=== PATIENT | female | born 1970 | race Caucasian/White ===

== ENCOUNTER → 2016-08-21 | Day surgery (SDC) | payer OTHER ==
--- NOTE | 2016-08-23 07:50 | PATH ---
Cytology Non-Gynecological Report Patient Name: TOBY MAYEN [facility]. Rec. #: [id number] /Age/Gender: 1970 (Age: 46) / F Account: [id number] Location: RADIOLOGY Taken: 08/21/2016 Received: 08/21/2016 Reported: 08/23/2016 Physicians: Luna Walton M.D. Specimen(s) Received RIGHT THYROID FNA Clinical History Right thyroid nodule, 4.20 x 2.40 x 3.20 cm Final Diagnosis THYROID GLAND, RIGHT LOBE, US GUIDED FINE NEEDLE ASPIRATION BIOPSY: SATISFACTORY FOR EVALUATION. NO MALIGNANT CELLS IDENTIFIED. CONSISTENT WITH ADENOMATOID NODULE (BENIGN FOLLICULAR NODULE, BETHESDA CATEGORY II, BENIGN), SEE COMMENT. Comment: The smears and cell block show clusters of bland appearing follicular epithelial cells arranged in mixed macro- and microfollicles and flat sheets. Some cells ramos Hurthle cell (oncocytic change). Colloid is present. Electronically Signed Manohar Peterson M.D. Gross Description Received are four air dried smears, four smears in 95% alcohol, and 20 cc of bloody fluid in formalin. Four diff-quik stained slides, four Pap stained slides and one cell block are made.
== END | disposition home or self-care (01) ==
LOC: JRADIR 09:54
PROVIDERS: ATTEND Family Medicine
PROC: 0GBH3ZX Excision of Right Thyroid Gland Lobe, Percutaneous Approach, Diagnostic (ICD-10-PCS; principal; 2016-08-21)
PROC: BG44ZZZ Ultrasonography of Thyroid Gland (ICD-10-PCS; 2016-08-21)
DX: E04.1 Nontoxic single thyroid nodule (principal)
CPT/HCPCS: 76942; 88173; 88305-TC

== ENCOUNTER 2017-06-14 09:55 | Day surgery (SDC) | payer OTHER ==
[2017-06-13 16:58] VITALS: BMI 32.2
--- NOTE | 2017-06-14 09:17 | HP ---
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 She also has a small nodule on the left lobe of her thyroid. Plan: Right thyroid lobectomy with frozen section , possible total thyroidectomy.)
[2017-06-14] MEDS ORDERED: MIDAZOLAM HCL 2 MG/2 ML SINGLE DOSE VIAL ONE (12:10)
[2017-06-14] MEDS ORDERED: LIDOCAINE HCL/PF 2% SDV 5ML VIAL ONE (12:11)
[2017-06-14] MEDS ORDERED: PROPOFOL 20 ML ONE ×3 (12:11→14:21)
[2017-06-14] MEDS ORDERED: SUCCINYLCHOLINE CHLORIDE 200 MG/10 ML VIAL ONE (12:12)
[2017-06-14] MEDS ORDERED: DEXAMETHASONE SOD PHOSPHATE 4 MG/1 ML VIAL ONE (12:30)
[2017-06-14] MEDS ORDERED: KETOROLAC TROMETHAMINE 30 MG/1 ML VIAL ONE (12:30)
[2017-06-14] MEDS ORDERED: ceFAZolin SODIUM 1 GM VIAL IVPB ONE (12:45)
[2017-06-14] MEDS ORDERED: ceFAZolin SODIUM 1 GM VIAL ONE (12:52)
[2017-06-14] MEDS ORDERED: SODIUM CHLORIDE 0.9% P/F 10 ML VIAL IJ ONE (12:52)
[2017-06-14] MEDS ORDERED: ONDANSETRON 4 MG/2 ML VIAL IVPUSH PRN (13:01)
[2017-06-14] MEDS ORDERED: BUPIVACAINE HCL/PF 0.5% (5MG/ML) 10 ML VIAL ONE (13:10)
[2017-06-14] MEDS ORDERED: LACTATED RINGERS SOLUTION 1,000 ML IV SCH (13:15)
[2017-06-14] MEDS ORDERED: SEVOFLURANE 250 ML BTL ONE (14:29)
--- NOTE | 2017-06-14 16:42 | OP ---
Operative Note - Note: Operative Date: 06/14/17 Pre-Operative Diagnosis: Thyroid nodule, suspicious for carcinoma. Operation: Total thyroidectomy, central compartment neck dissection and right lateral neck dissection, use of Nervana nerve monitor. 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 Total thyroidectomy done with nerve monitoring , central compartment neck dissection and right lateral neck dissection done. Post-Operative Diagnosis: Same as Pre-op (Carcinoma of thyroid gland.) Surgeon: Jorge Salazar Pst Supervisor: Marika Lomeli Anesthesia: General Specimens Removed: 1)Right lobe of thyroi gland ,. 2) left lobe of thyroid,. 3 ) Central compartment neck dissection Estimated Blood Loss (mls): 25 Drains & Tubes with Location: DEEJAY drain in thyroid bed. Operative Report Dictated: Yes
[2017-06-14] MEDS ORDERED: oxyCODONE HCL 5 MG TABLET PO PRN (17:03)
[2017-06-14] MEDS ORDERED: ACETAMINOPHEN 325 MG TABLET (FP) PO PRN (17:04)
[2017-06-14] MEDS: oxyCODONE HCL 5 MG TABLET PO PRN (21:23)
[2017-06-15] MEDS: oxyCODONE HCL 5 MG TABLET PO PRN ×2 (02:27→10:58)
[2017-06-15 05:53] VITALS: BP 114/71; PULSE 77; TEMP 98.8
--- NOTE | 2017-06-15 08:27 | PN ---
Progress Note (short form) - Note Progress Note: Anesthesia Post op Pt seen and examined S:alert and awake O: Vital Signs Temperature 98.8 F 06/15/17 05:51 Pulse Rate 77 06/15/17 05:51 Respiratory Rate 18 06/15/17 05:51 Blood Pressure 114/71 06/15/17 05:51 O2 Sat by Pulse Oximetry (%) 100 06/14/17 22:00 A/P: s/p neck disection thyroidectomy Doing well post op Continue current care Quang Jurado MD
[2017-06-15] MEDS ORDERED: CALCIUM 500MG/VIT-D 200 UNITS COMBO TABLET (FP) PO SCH (10:00)
--- NOTE | 2017-06-15 13:28 | OP ---
DATE OF OPERATION: 06/14/2017 PREOPERATIVE DIAGNOSIS: Nodule in the left lobe of the thyroid suspicious for carcinoma on fine needle aspiration biopsy. POSTOPERATIVE DIAGNOSIS: Papillary carcinoma of the thyroid. PROCEDURES PERFORMED: 1. Total thyroidectomy, central compartment neck dissection and right lateral compartment neck dissection. 2. Use of Nerveana nerve monitoring device. SURGEON: Romana Salazar MD PSYCHIATRIC NURSE PRACTITIONER: OMAIRA Alonso ANESTHESIA: General anesthesia. INDICATIONS: This 47-year-old woman was brought in for thyroidectomy. The patient had a large nodule in the right lobe of the thyroid which on FNA was highly suspicious for papillary carcinoma of the thyroid. The procedure was explained to the patient. MONITORING: The Nerveana nerve monitoring device was used during the procedure. DESCRIPTION OF PROCEDURE: The neck was positioned in extension, painted and draped. A horizontal skin incision was made from one sternocleidomastoid muscle to another. This was deepened through the skin and subcutaneous tissue and the platysma muscle. Superior and inferior skin flaps were then raised between the platysma and the deep cervical fascia, superiorly up to the hyoid bone, inferiorly anterior to and below the clavicle on either side. The sternocleidomastoid muscle was also freed from the flap on either side. The strap muscles were then divided in the midline from the hyoid bone to the suprasternal notch. The thyroid gland was then exposed. The right lobe of the thyroid gland was visualized. There was a large nodule occupying the body of the right lobe of the thyroid gland. The left lobe of the thyroid gland was also visualized after retracting the left lobe and retracting the strap muscles laterally. There was no palpable nodule in the left lobe of the thyroid gland. It was then decided to remove the right lobe of the thyroid gland. The strap muscles on the right were retracted laterally and the thyroid gland was retracted anteriorly and medially. The superior thyroid vessels were divided as close to the gland as possible between clips and the LigaSure. The inferior thyroid vessels were also divided as close to the gland as possible between clips and the LigaSure. Care was taken to preserve the blood supply to both superior and inferior parathyroid glands and preserve the gland intact. Dissection was then carried toward Foy ligament. The right lobe of the thyroid gland was retracted medially. The recurrent laryngeal nerve was identified and preserved throughout its extent until it penetrated the cricothyroid muscle. The function was monitored using the Nerveana nerve monitoring device, with appropriate response to stimulation. The gland was then mobilized across the circumferential plane toward the left. The isthmus was divided using a Paulette clamp. A specimen of the right lobe of the thyroid gland was then sent for frozen section. Frozen section diagnosis was positive for papillary carcinoma of the thyroid. It was then decided to do a total thyroidectomy with a modified neck dissection. The left lobe of the thyroid gland was then mobilized medially. The superior thyroid vessels were divided as close to the gland as possible. The superior parathyroid gland was visualized and preserved intact. The dissection was carried medial to the parathyroid and just into the thyroid gland. The inferior thyroid vessels were also divided as close to the gland as possible between Hemoclips and the LigaSure. The gland was then mobilized medially. The left recurrent laryngeal nerve was again preserved intact all along its course. This was confirmed by appropriate response to stimulation with the Nerveana nerve monitoring device. The gland was then divided at Foy ligament and a total thyroidectomy was performed. The specimen was sent to Pathology. Lateral compartment neck dissection was then performed by exposing the internal jugular vein and the carotid artery from the angle of the mandible all the way to the clavicle. There were no enlarged lymph nodes. A central compartment neck dissection was then done, removing all fibrofatty tissue from the left recurrent laryngeal nerve to the right recurrent laryngeal nerve, preserving the nerve intact. This was carried all the way down to the anterior mediastinum. The specimen was sent to Pathology. Hemostasis was satisfactory. A number 10 DEEJAY drain was left in the wound and brought out through a stab wound on the right side of the neck. Hemostasis was satisfactory. The wound was irrigated. There was no bleeding. Both recurrent laryngeal nerves were intact. The drain was anchored to the skin with 3-0 Prolene sutures. The strap muscles were then approximated with interrupted 3-0 Vicryl sutures. The platysma was approximated with buried interrupted 0 Vicryl sutures. The subcutaneous fat was approximated with buried interrupted 0 Vicryl sutures, and the skin approximated with continuous 4-0 Monocryl sutures in a running subcuticular fashion. Estimated blood loss was 25 mL. The patient tolerated the procedure well. She was extubated and sent to the recovery room in satisfactory and stable condition. Luna [id number] cc: DIANNE PAPPAS M.D.
--- NOTE | 2017-06-15 14:16 | PN ---
Progress Note, Physician - Current Medication List Current Medications: Active Medications Acetaminophen (Tylenol -) 325 mg PO Q4H PRN PRN Reason: FEVER Last Admin: 06/15/17 10:58 Dose: 325 mg Calcium Carbonate/Cholecalciferol (Os-[place] 500+D -) 1 tab PO DAILY [facility] Last Admin: 06/15/17 09:28 Dose: 1 tab Fentanyl (Sublimaze Injection -) 50 mcg IVPUSH [id number] PRN PRN Reason: PAIN-PACU ORDER X 4 DOSES ONLY Last Admin: 06/14/17 16:55 Dose: 50 mcg Lactated Ringer's (Lactated Ringers Solution) 1,000 mls @ 75 mls/hr IV ASDIR [facility] Last Admin: 06/14/17 21:22 Dose: 75 mls/hr Ondansetron HCl (Zofran Injection) 4 mg IVPUSH Q6H PRN PRN Reason: NAUSEA AND/OR VOMITING Oxycodone HCl (Roxicodone -) 5 mg PO Q4H PRN PRN Reason: Pain Level > 4 Last Admin: 06/15/17 10:58 Dose: 5 mg Oxycodone HCl (Roxicodone -) 5 mg PO Q6H PRN PRN Reason: PAIN LEVEL 1-5 - Objective Vital Signs: Vital Signs Temperature 98.8 F 06/15/17 05:51 Pulse Rate 77 06/15/17 05:51 Respiratory Rate 18 06/15/17 05:51 Blood Pressure 114/71 06/15/17 05:51 O2 Sat by Pulse Oximetry (%) 100 06/14/17 22:00 Assessment/Plan Surgery; Patient is comfortable. Neck wound is clean. drainage is minimal. plan : discharge home with synthroid and calcinm + Vitamin D. Follow up in my office.
--- NOTE | 2017-06-19 12:15 | PATH ---
Surgical Pathology Report Patient Name: TOBY MAYEN [facility]. Rec. #: [id number] /Age/Gender: 1970 (Age: 47) / F Account: [id number] Location: AMBULATORY SURG Taken: 06/14/2017 Received: 06/14/2017 Reported: 06/19/2017 Physicians: Romana Salazar M.D. Specimen(s) Received A: RIGHT THYROID LOBE B: LEFT THYROID LOBE C: CENTRAL COMPARTMENT NECK DISSECTION TISSUE Clinical History Right thyroid nodule Intraoperative Consult Diagnosis Right thyroid, frozen section: Papillary thyroid carcinoma. Brissa Keita M.D., 06/14/17 Final Diagnosis A. THYROID, RIGHT, LOBECTOMY (FS): TWO FOCI OF PAPILLARY THYROID CARCINOMA, CLASSICAL AND FOLLICULAR VARIANTS. CARCINOMA MEASURES 2.7 AND 1.5 CM (GROSS MEASUREMENT). NO LYMPHOVASCULAR OR PERINEURAL INVASION IDENTIFIED. FOCAL EXTRA THYROIDAL EXTENSION IDENTIFIED. SURGICAL MARGINS ARE NEGATIVE. REMAINDER OF THE THYROID PARENCHYMA SHOWS NODULAR HYPERPLASIA AND AREAS OF CHRONIC LYMPHOCYTIC THYROIDITIS. ONE PARATHYROID GLAND PRESENT. SEE INVASIVE SUMMARY BELOW. B. THYROID, LEFT, LOBECTOMY: PAPILLARY MICROCARCINOMA. CARCINOMA MEASURES 3 MM IN GREATEST MICROSCOPIC DIMENSION. NO LYMPHOVASCULAR OR PERINEURAL INVASION IDENTIFIED. NO EXTRA THYROIDAL EXTENSION IDENTIFIED. SURGICAL MARGINS ARE NEGATIVE. REMAINDER OF THE THYROID PARENCHYMA SHOWS NODULAR HYPERPLASIA AND AREAS OF CHRONIC LYMPHOCYTIC THYROIDITIS. ONE PARATHYROID GLAND PRESENT. SEE INVASIVE SUMMARY BELOW. C. LYMPH NODES, CENTRAL COMPARTMENT, DISSECTION: NINETEEN BENIGN LYMPH NODES ON H&E AND AE1/3 IMMUNOHISTOCHEMICAL STAIN (0/19). PATHOLOGIC STAGE (pTNM): pT2 pN0a pMx. Comment: On part A, right thyroid, the larger nodule (2.7 cm) is partially encapsulated with focal extra thyroidal extension. The smaller nodule (1.5 cm) is encapsulated. Comments Thyroid: Surgical Pathology Cancer Case Summary (Based on AJCC 8 th edition) Procedure _X_ Right lobectomy _X_ Left lobectomy Tumor Focality _X_ Multifocal Tumor Site _X__ Right lobe (2.7 CM, and 1.5 CM) _X__ Left lobe (Microcarcinoma, 3 MM) Tumor Size Greatest dimension (centimeters): 2.7 cm Histologic Type Papillary Carcinomas _X_ Papillary carcinoma, classic (usual, conventional) _X_ Papillary carcinoma, follicular variant, infiltrative Margins _X__ Uninvolved by carcinoma Angioinvasion (Vascular Invasion) _X_ Not identified Lymphatic Invasion _X_ Not identified Extrathyroidal Extension _X_ Identified (focal, right) Regional Lymph Nodes Number of Lymph Nodes Involved: 0/19 Specify Bruno Levels _X_ Level (central compartment) Extranodal Extension (ERNESTO) _X_ Not identified Pathologic Stage Classification (pTNM, AJCC 8th Edition) TNM Descriptors _X_ m (multiple primary tumors) Primary Tumor (pT) _X_ pT2: Tumor >2 cm, but =4 cm in greatest dimension, limited to thyroid Regional Lymph Nodes (pN) _X_ pN0a: One or more cytologically or histologically confirmed benign lymph nodes Additional Pathologic Findings _X_ Adenomatoid nodule(s) or nodular follicular disease (nodular hyperplasia) _X_ Thyroiditis (specify type): Chronic lymphocytic thyroiditis _X_ Parathyroid gland(s) present: One gland each on both right and left lobes (total 2) Electronically Signed Dayanna Peña M.D. Gross Description A. Received fresh labeled "right lobe of thyroid," is a 22 g, 5.0 x 4.0 x 2.3 cm intact thyroid lobe. The capsule is red-brown and intact. Sectioning reveals two nodules measuring 2.7 x 2.5 x 2.0 cm and 1.5 x 1.2 x 0.8 cm. The cut surface of the larger nodule is heterogeneous young-red with foci of hemorrhage. The smaller nodule cut surface is young-yellow and solid. The remaining thyroid parenchyma is red-brown and beefy. A touch prep is performed and software sales representative sections of each nodule are submitted for frozen section. Tentmaker sections are submitted in 9 cassettes as follows: 1-frozen section residue; 4-7-pngzdfmim thyroid (larger nodule in cassettes 3-6; smaller nodule in cassette 8). B. Received fresh labeled "left lobe of thyroid," is a 6 g, 4.0 x 2.5 x 1.0 cm intact thyroid lobe. The outer capsule is red-brown and intact. Sectioning reveals multifocal small colloid nodules measuring up to 0.5 cm in greatest dimension. The remaining thyroid parenchyma is red-brown and beefy. The specimen is entirely and sequentially submitted in 7 cassettes. C. Received in formalin labeled "neck dissection central compartment," is a 4.5 x 2.5 x 0.9 cm aggregate of yellow, lobulated adipose tissue. Sectioning reveals multiple young-brown, irregular lymph nodes ranging from 0.2-0.6 cm in greatest dimension. The specimen is entirely submitted in 8 cassettes as follows: 1-5-three whole possible lymph nodes each; 6-two whole possible lymph nodes; 5-4-qfoemzfts fat. 06/17/2017 06/14/201706/14/2017
== END 2017-06-15 14:30 | disposition home or self-care (01) ==
LOC: JASUSAT 09:55 → JOR 09:55 → J6S 20:05 → JASUSAT 06-15 14:30
PROVIDERS: ATTEND Specialist
PROC: 0GTK0ZZ Resection of Thyroid Gland, Open Approach (ICD-10-PCS; principal; 2017-06-14 11:30)
DX: C73 Malignant neoplasm of thyroid gland (principal)
CPT/HCPCS: 36415; 82310; 86850; 86900; 86901; 88307-TC; 88331-TC; 88342-TC; 94760

== ENCOUNTER 2021-12-13 10:25 | Day surgery (SDC) | payer OTHER ==
[2021-12-13 11:47] VITALS: TEMP 97.3
[2021-12-13 12:10] VITALS: BP 102/54; PULSE 60
== END 2021-12-13 12:30 | disposition home or self-care (01) ==
LOC: FASU-ENDO 10:25
PROVIDERS: ATTEND Internal Medicine Gastroenterology
PROC: 0DJD8ZZ Inspection of Lower Intestinal Tract, Via Natural or Artificial Opening Endoscopic (ICD-10-PCS; principal; 2021-12-13 11:25)
DX: Z12.11 Encounter for screening for malignant neoplasm of colon (principal); K64.1 Second degree hemorrhoids; K64.8 Other hemorrhoids

== ENCOUNTER 2023-11-29 06:50 | Day surgery (SDC) | payer OTHER ==
[2023-11-26 15:04] VITALS: BMI 36.1
[2023-11-29] MEDS ORDERED: CEFAZOLIN SODIUM 2 GM in DEXTROSE 5%-WATER 100 ML IVPB ONE (06:52)
[2023-11-29] MEDS ORDERED: EPINEPHrine 1:1,000 1,000 MCG/ML ML ONE (07:36)
[2023-11-29] MEDS ORDERED: BUPIVACAINE HCL/EPINEPHRINE/PF 30 ML VIAL IJ ONE (07:41)
[2023-11-29] MEDS ORDERED: DEXAMETHASONE SOD PHOSPHATE 10 MG/1 ML VIAL ONE (08:05)
[2023-11-29] MEDS ORDERED: ACETAMINOPHEN INJECTION 100 ML IVPB ONE (08:05)
[2023-11-29] MEDS ORDERED: MIDAZOLAM HCL 2 MG/2 ML SINGLE DOSE VIAL ONE (08:05)
[2023-11-29] MEDS ORDERED: BUPIVACAINE HCL/PF 0.5% (5 MG/ML) 30 ML VIAL IJ ONE (08:05)
[2023-11-29] MEDS ORDERED: PROPOFOL 20 ML ONE ×3 (08:25→09:46)
[2023-11-29] MEDS ORDERED: ceFAZolin SODIUM 1 GM VIAL ONE ×2 (08:30)
[2023-11-29] MEDS: BUPIVACAINE 0.25% /EPI 1:200,000 10 ML VIAL NR ONE (09:24)
[2023-11-29] MEDS ORDERED: LABETALOL HCL 5 MG/1 ML (100MG/20 ML VIAL) ONE (09:47)
[2023-11-29] MEDS ORDERED: ONDANSETRON 4 MG/2 ML VIAL IVPUSH PRN (10:44)
[2023-11-29] MEDS ORDERED: oxyCODONE HCL 5 MG TABLET PO PRN ×2 (10:44)
[2023-11-29] MEDS ORDERED: ACETAMINOPHEN 325 MG TABLET (FP) PO PRN (10:44)
[2023-11-29] MEDS ORDERED: LACTATED RINGERS SOLUTION 1,000 ML IV SCH (10:45)
[2023-11-29 11:53] VITALS: RESP 18; TEMP 97
[2023-11-29 12:53] VITALS: BP 129/77; PULSE 69
== END 2023-11-29 12:15 | disposition home or self-care (01) ==
LOC: FASU 06:50
PROVIDERS: ATTEND Orthopaedic Surgery
PROC: 0LS44ZZ Reposition Left Upper Arm Tendon, Percutaneous Endoscopic Approach (ICD-10-PCS; principal; 2023-11-29 09:24)
PROC: 0RBK4ZZ Excision of Left Shoulder Joint, Percutaneous Endoscopic Approach (ICD-10-PCS; 2023-11-29 09:24)
DX: S46.012D Strain of muscle(s) and tendon(s) of the rotator cuff of left shoulder, subsequent encounter (principal); M75.22 Bicipital tendinitis, left shoulder; M75.52 Bursitis of left shoulder; M85.821 Other specified disorders of bone density and structure, right upper arm; S43.432D Superior glenoid labrum lesion of left shoulder, subsequent encounter; M19.012 Primary osteoarthritis, left shoulder; M75.02 Adhesive capsulitis of left shoulder; X58.XXXD Exposure to other specified factors, subsequent encounter
CPT/HCPCS: 88304-TC; 94760; C1713; J0131; J1100